=== PATIENT | female | born 1960 | race Caucasian/White ===

== ENCOUNTER 2019-07-18 09:03 | Day surgery (SDC) | payer OTHER ==
[2019-07-18] MEDS ORDERED: FENTAnyl 50 MCG/ML VIAL (10:54)
[2019-07-18] MEDS ORDERED: MIDAZOLAM 1 MG/ML 2 ML INJ ×2 (10:54)
== END 2019-07-18 14:20 | disposition home or self-care (01) ==
LOC: GIL 09:03
DX: K29.70 Gastritis, unspecified, without bleeding (principal); K63.89 Other specified diseases of intestine; K57.30 Diverticulosis of large intestine without perforation or abscess without bleeding
CPT/HCPCS: 43239; 88305; 88312